=== PATIENT | male | born 1945 | race Caucasian/White ===

== ENCOUNTER 2017-11-12 19:10 | Emergency (ER) | payer MEDICARE, BC ==
[2017-11-12] MEDS ORDERED: Lidocaine-Prilocaine 2.5% Cream 5 GM TUBE TOP SCH (21:15)
[2017-11-12] MEDS ORDERED: Lidocaine 1% PF 5 ML VIAL ONE (21:56)
== END 2017-11-12 23:32 | disposition home or self-care (01) ==
LOC: ERS 19:10
DX: T81.30XA Disruption of wound, unspecified, initial encounter (principal); I48.91 Unspecified atrial fibrillation; I10 Essential (primary) hypertension
CPT/HCPCS: 99283; J2001